=== PATIENT | female | born 1985 | race Caucasian/White ===

== ENCOUNTER 2016-11-03 07:06 | Inpatient (IN) | payer OTHER ==
[~2016-11-03] VITALS: Ht 160 cm; Wt 100.9 kg
[2016-11-03] VITALS (23 sets, daily range): BP systolic 111–139; BP diastolic 64–94
[2016-11-03] MEDS ORDERED: EXPECTA PRENAT1 EACH PO (07:45)
[2016-11-03] MEDS ORDERED: ALDOMET250 MG PO (07:47)
[2016-11-03] MEDS ORDERED: KRILL OIL500 MG PO (07:49)
[2016-11-03] MEDS ORDERED: ZANTAC150 MG PO (07:49)
[2016-11-03 08:33] LABS: EOSINOPHIL (%) 0.9 % (0-5); EOSINOPHIL COUNT 0.1 K/uL (0-0.3); HEMATOCRIT 38.3 % (36.0-46.0); IMMATURE GRANULOCYTE (%) 0.4 % (0.0-0.7); INSTRUMENT ABS NEUTROPHIL CT 6.8 K/uL; LYMPHOCYTE COUNT 1.8 K/uL (1.0-2.8); MCH 29.6 PG (29.0-34.0); MCHC 32.9 G/DL (30.0-36.0); MCV 89.9 FL (83-99); MONOCYTE (%) 6.9 % (3-12); MONOCYTE COUNT 0.6 K/uL (0-0.8); NEUTROPHIL (%) 72.6 % (45-76); NEUTROPHIL COUNT 6.8 K/uL (1.8-6.4); PLATELET COUNT 168 K/uL (156-360); RBC DIS.WIDTH-SD 48.8 % (39-53); RED BLOOD COUNT 4.26 M/uL (3.80-5.20); WHITE BLOOD COUNT 9.3 K/uL (4.1-10.2)
[2016-11-04] VITALS (13 sets, daily range): BP systolic 113–151; BP diastolic 70–97
[2016-11-04] MEDS ORDERED: ENDOCET 5-3251 EACH PO (00:36)
[2016-11-04] MEDS ORDERED: IBUPROFEN800 MG PO (00:36)
[2016-11-05 07:03] LABS: EOSINOPHIL (%) 1.4 % (0-5); EOSINOPHIL COUNT 0.2 K/uL (0-0.3); HEMATOCRIT 32.2 % (36.0-46.0); IMMATURE GRANULOCYTE (%) 0.5 % (0.0-0.7); IMMATURE GRANULOCYTE COUNT 0.1 K/uL; INSTRUMENT ABS NEUTROPHIL CT 10.1 K/uL; LYMPHOCYTE COUNT 2.3 K/uL (1.0-2.8); MCH 29.6 PG (29.0-34.0); MCHC 32.9 G/DL (30.0-36.0); MCV 89.9 FL (83-99); MEAN PLAT.VOLUME 11.7 uM^3 (9.5-12.4); MONOCYTE (%) 4.7 % (3-12); MONOCYTE COUNT 0.6 K/uL (0-0.8); NEUTROPHIL (%) 75.9 % (45-76); NEUTROPHIL COUNT 10.1 K/uL (1.8-6.4); PLATELET COUNT 157 K/uL (156-360); RBC DIS.WIDTH-CV 14.9 % (11.8-14.6); RBC DIS.WIDTH-SD 48.9 % (39-53); RED BLOOD COUNT 3.58 M/uL (3.80-5.20)
[2016-11-05 07:06] LABS: WHITE BLOOD COUNT 13.2 K/uL (4.1-10.2)
[2016-11-05 07:27] VITALS: BP 124/82
[2016-11-05 11:07] VITALS: BP 136/84
[2016-11-05 17:01] VITALS: BP 136/87
[2016-11-05 19:29] VITALS: BP 142/85
[2016-11-05 23:06] VITALS: BP 141/87
[2016-11-06 03:01] VITALS: BP 147/84
[2016-11-06 14:30] VITALS: BP 147/85
== END 2016-11-06 14:45 | disposition home or self-care (01) | DRG 774 ==
LOC: LDRP-OP 07:06 → 2WEST 07:07 → LDRP-OP 09:52 → 2WEST 11-04 00:11 → LDRP-OP 12-08 20:02
PROVIDERS: Nurse Practitioner; Obstetrics & Gynecology
PROC: 3E0S3CZ (ICD-10-PCS; principal; 2016-11-03)
PROC: 3E033VJ Introduction of Other Hormone into Peripheral Vein, Percutaneous Approach (ICD-10-PCS; principal; 2016-11-03)
PROC: 00HU33Z Insertion of Infusion Device into Spinal Canal, Percutaneous Approach (ICD-10-PCS; principal; 2016-11-03)
PROC: 10E0XZZ Delivery of Products of Conception, External Approach (ICD-10-PCS; 2016-11-04)
PROC: 0KQM0ZZ Repair Perineum Muscle, Open Approach (ICD-10-PCS; 2016-11-04)
DX: O70.1 Second degree perineal laceration during delivery (principal); O10.02 Pre-existing essential hypertension complicating childbirth; O99.824 Streptococcus B carrier state complicating childbirth; Z3A.39 39 weeks gestation of pregnancy; Z37.0 Single live birth; O77.0 Labor and delivery complicated by meconium in amniotic fluid; O76 Abnormality in fetal heart rate and rhythm complicating labor and delivery; E66.9 Obesity, unspecified; O99.214 Obesity complicating childbirth; Z68.34 Body mass index [BMI] 34.0-34.9, adult
CPT/HCPCS: 85025; C1755; G0378; J2540; J3010; J7120

== ENCOUNTER 2016-11-09 19:24 | Emergency (ER) | payer OTHER ==
[~2016-11-09] VITALS: Ht 160 cm; Wt 91.5 kg
[~2016-11-09 19:24] MED LIST: ALDOMET250 MG PO; ENDOCET 5-3251 EACH PO; EXPECTA PRENAT1 EACH PO; IBUPROFEN800 MG PO; KRILL OIL500 MG PO; ZANTAC150 MG PO
[2016-11-09 20:23] LABS: HEMATOCRIT 36.3 % (36.0-46.0); MCH 29.5 PG (29.0-34.0); MCHC 32.8 G/DL (30.0-36.0); MCV 89.9 FL (83-99); MEAN PLAT.VOLUME 10.3 uM^3 (9.5-12.4); PLATELET COUNT 256 K/uL (156-360); RBC DIS.WIDTH-CV 14.9 % (11.8-14.6); RBC DIS.WIDTH-SD 48.7 % (39-53); RED BLOOD COUNT 4.04 M/uL (3.80-5.20); WHITE BLOOD COUNT 8.9 K/uL (4.1-10.2)
[2016-11-09 20:29] LABS: CHLORIDE 108 mEq/L (99-109); POTASSIUM 3.8 mEq/L (3.7-5.4); SODIUM 140 mEq/L (136-147)
[2016-11-09 20:31] LABS: GLUCOSE 88 mg/dL (70-99)
[2016-11-09 20:32] LABS: ANION GAP 10 MEQ/L (2-14)
[2016-11-09 20:33] LABS: TOTAL BILIRUBIN 0.2 mg/dL (0.0-1.0)
[2016-11-09 20:35] LABS: ALKALINE PHOSPHATASE 74 IU/L (3-129); GFR ESTIMATE (CALCULATED) > 59 mL/min/
[2016-11-09 20:36] LABS: UREA NITROGEN (BUN) 12 mg/dL (9-23)
[2016-11-09 20:58] LABS: ADD MIUA? YES; BILIRUBIN NEGATIVE; BLOOD LARGE; COLOR STRAW ((YELLOW)); GLUCOSE (STRIP) NEGATIVE; KETONES NEGATIVE; LEUKOCYTES LARGE; NITRITE NEGATIVE; PROTEIN (STRIP) NEGATIVE; SPECIFIC GRAVITY 1.005 (1.000-1.030); UROBILINOGEN 0.2 MG/DL (0.2-1.0)
[2016-11-09 21:05] LABS: BACTERIA RARE /HPF; EPITHELIAL CELLS RARE /HPF; MUCUS NONE SEEN /LPF
[2016-11-09 21:52] VITALS: BP 146/109
== END 2016-11-09 21:55 | disposition home or self-care (01) ==
LOC: EME 19:24
PROVIDERS: Nurse Practitioner Family
DX: O11.5 Pre-existing hypertension with pre-eclampsia, complicating the puerperium (principal)
CPT/HCPCS: 80053; 81003; 85027; 93005; 99281; 99284